=== PATIENT | female | born 1980 | race Caucasian/White ===

== ENCOUNTER → 2019-03-23 | Outpatient (CLI) | payer BC, OTHER ==
--- NOTE | 2019-03-23 15:45 | KCIC ---
Bilateral diagnostic digital mammograms with 3-D tomosynthesis: Reason for examination: Bilateral breast lumps. Baseline exam. Bilateral mammograms in CC and oblique projections were obtained with 2-D imaging and 3-D tomosynthesis imaging on a Siemens Inspiration unit and reviewed on the workstation. Interpretation was made with the benefit of CAD. The skin and nipples show no abnormalities. No abnormal axillary lymph nodes are seen. The breast parenchyma shows scattered fatty and fibroglandular density. (Breast density: Category B.) There are no dominant masses, suspicious calcifications or architectural distortion. Impression: No evidence of malignancy. Ultrasound to follow. BI-RAD Category 0: Incomplete. Needs additional imaging evaluation. Bilateral breast ultrasound: Bilateral whole breast ultrasound including evaluation of all 4 quadrants and the retroareolar and axillary regions of both breasts was performed. In the right breast at the 1:00 position 12 cm from the nipple, there is a hyperechoic 3.5 cm lesion consistent with a lipoma. In the 2:00 position 13 cm from the nipple, there is a 3.8 cm nodule isoechoic to the fat consistent with a lipoma. In the 6:00 position 3 cm from the nipple, there is a 1.3 cm hyperechoic lesion consistent with a lipoma. In the 12:00 position 9 cm from the nipple, there is a 1.7 cm hyperechoic lesion consistent with a lipoma. No abnormal appearing lymph nodes are seen in the axilla. In the left breast at the 11:00 position 11 cm from the nipple, there is a 1.8 cm hyperechoic lesion consistent with a lipoma. In the 3:00 position 9 cm from the nipple, there is a 7.7 mm hyperechoic lesion consistent with a lipoma. In the 2:00 position 5 cm from the nipple, there is a 1.7 cm hypoechoic lesion consistent with a lipoma. No other focal suspicious abnormalities are seen. No abnormal appearing lymph nodes are seen in the axilla. IMPRESSION: Multiple hyperechoic and isoechoic lesions consistent with a lipoma bilaterally. No suspicious nodules seen. Recommend routine mammographic follow-up. BI-RADS Category 2: Benign. "Our facility is accredited by the [employer] Mammography [employer]." This patient's information has been entered into a reminder system for the patient to be notified with the results of her examination and a target date for the next mammogram. Electronically signed by: Danyell Cason MD (03/23/2019 3:41 PM) [id number]
== END | disposition home or self-care (01) ==
LOC: KCIC MAMMO 09:37
PROVIDERS: ATTEND Advanced Practice Midwife
DX: N64.89 Other specified disorders of breast (principal)
CPT/HCPCS: 76641; 77066; G0279; 77062

== ENCOUNTER → 2020-09-23 | Outpatient (CLI) | payer OTHER ==
--- NOTE | 2020-09-23 17:03 | KCIC ---
Bilateral digital screening mammograms: Reason for examination: Routine screening. Comparison is made to previous study dated 03/23/2019. Interpretation was made with the benefit of CAD. The skin and nipples show no abnormalities. No abnormal axillary lymph nodes are seen. The breast par enchyma shows scattered fibroglandular density. (Breast density: Category B.) There are no dominant m asses, suspicious calcifications or architectural distortions. Impression: No evidence of malignancy. Recommend routine screening. BI-RADS Category 1: Negative. "Our facility is accredited by the [employer] Mammography [employer]." This patient's information has been entered into a reminder system for the patient to be notified wit h the results of her examination and a target date for the next mammogram. Electronically signed by: Danyell Cason MD (09/23/2020 5:01 PM) [id number]
== END ==
LOC: KCIC MAMMO 15:54
PROVIDERS: ATTEND Nurse Practitioner
DX: Z12.31 Encounter for screening mammogram for malignant neoplasm of breast (principal)
CPT/HCPCS: 77067